=== PATIENT | female | born 1970 | race Two or more races ===

== ENCOUNTER 2021-01-19 16:31 | Emergency (ER) | payer SELFPAY ==
[~2021-01-19] VITALS: Ht 154.9 cm; Wt 74.8 kg
[2021-01-19 17:03] VITALS: BP 160/92
[2021-01-19] MEDS ORDERED: IBUPROFEN 800 MG TAB PO ONE (17:45)
== END 2021-01-19 19:42 | disposition home or self-care (01) ==
LOC: ER 16:31
DX: S83.92XA Sprain of unspecified site of left knee, initial encounter (principal); S83.91XA Sprain of unspecified site of right knee, initial encounter; M25.531 Pain in right wrist; E11.9 Type 2 diabetes mellitus without complications; I10 Essential (primary) hypertension; X58.XXXA Exposure to other specified factors, initial encounter; Y93.89 Activity, other specified; Y92.89 Other specified places as the place of occurrence of the external cause; Y99.8 Other external cause status
CPT/HCPCS: 73562

== ENCOUNTER 2022-03-28 21:29 | Emergency (ER) | payer SELFPAY ==
[~2022-03-28] VITALS: Ht 154.9 cm; Wt 81.2 kg
[2022-03-28 21:38] VITALS: BP 154/91
[2022-03-28] MEDS ORDERED: diphenhdrAMINE HCL 50 MG/1 ML VL IM ONE (21:45)
[2022-03-28] MEDS ORDERED: methylPREDNISolone SOD SUCC 125 MG/2 ML VL IM ONE (21:45)
== END 2022-03-29 04:50 | disposition left against medical advice (07) ==
LOC: ER 21:29
DX: T78.40XA Allergy, unspecified, initial encounter (principal); L29.9 Pruritus, unspecified; X58.XXXA Exposure to other specified factors, initial encounter
CPT/HCPCS: J1200; J2930

== ENCOUNTER 2023-01-18 18:35 | Emergency (ER) | payer BC, OTHER ==
[~2023-01-18] VITALS: Ht 154.9 cm; Wt 72.0 kg
[2023-01-18 23:21] VITALS: BP 133/64
== END 2023-01-18 23:21 | disposition home or self-care (01) ==
LOC: ER 18:41
DX: S60.221A Contusion of right hand, initial encounter (principal); I10 Essential (primary) hypertension; E11.9 Type 2 diabetes mellitus without complications; E78.5 Hyperlipidemia, unspecified; Z90.710 Acquired absence of both cervix and uterus; W22.8XXA Striking against or struck by other objects, initial encounter; Y93.89 Activity, other specified; Y92.89 Other specified places as the place of occurrence of the external cause; Y99.8 Other external cause status
CPT/HCPCS: 73130